=== PATIENT | female | born 1990 | race American Indian/Alaskan Native ===

== ENCOUNTER 2022-02-17 14:32 | Emergency (ER) | payer SELFPAY ==
[2022-02-17 16:03] VITALS: BP 121/74
--- NOTE | 2022-02-17 16:50 | XRay Report ---
LEFT ANKLE 3 VIEW(S) INDICATION / CLINICAL INFORMATION: pain and recent fall COMPARISON: None available. FINDINGS: BONES / JOINT(S): No acute fracture or subluxation. No significant arthritis. SOFT TISSUES: Mild soft tissue swelling about the ankle. ADDITIONAL FINDINGS: None. IMPRESSION: 1. Mild soft tissue swelling about the ankle. 2. No acute fracture. Signer Name: Perez Evans MD Signed: 02/17/2022 4:45 PM Workstation Name: [email or web address]
--- NOTE | 2022-02-17 17:26 | Emergency Department Report ---
ED Lower Extremity HPI - General Chief Complaint: Extremity Injury, Lower Stated Complaint: FOOT,ANKLE,LEG PAIN Time Seen by Provider: 02/17/22 17:24 Source: patient Mode of arrival: Ambulatory Limitations: No Limitations - History of Present Illness Initial Comments: 31-year-old black female with no past medical history sent to the emergency department for evaluation of left ankle and foot pain. She states that she twisted her ankle a couple days ago and has had increasing pain to the area since then. MD Complaint: ankle injury, foot injury -: Sudden, days(s) (2-3) Injury: Ankle: Left, Foot: Left Place: home Severity: moderate Severity scale (0 -10): 7 Worsens With: weight bearing Associated Symptoms: able to partially bear weight. denies: snap/pop sensation, swelling - Related Data Previous Rx's Medication Instructions Recorded Last Taken Type Azithromycin [Zithromax Z-DIANE] 0 mg PO DAILY #1 pack 06/11/19 Unknown Rx Naproxen [Naprosyn] 500 mg PO BID #14 tab 02/17/22 Unknown Rx Allergies Allergy/AdvReac Type Severity Reaction Status Date / Time No Known Allergies Allergy Verified 02/17/22 16:04 ED Review of Systems ROS: Stated complaint: FOOT,ANKLE,LEG PAIN Other details as noted in HPI Comment: All other systems reviewed and negative Constitutional: denies: chills, fever Respiratory: denies: shortness of breath Cardiovascular: denies: chest pain, palpitations Gastrointestinal: denies: abdominal pain, nausea, vomiting Musculoskeletal: denies: back pain Neurological: denies: headache, weakness ED Past Medical Hx - Surgical History Additional Surgical History: back surgery as a child - Social History Smoking Status: Current Every Day Smoker (1 pack day) Substance Use Type: None - Medications Home Medications: Home Medications Medication Instructions Recorded Confirmed Last Taken Type Azithromycin [Zithromax Z-DIANE] 0 mg PO DAILY #1 pack 06/11/19 Unknown Rx Naproxen [Naprosyn] 500 mg PO BID #14 tab 02/17/22 Unknown Rx ED Physical Exam - General Limitations: No Limitations General appearance: alert, in no apparent distress - Head Head exam: Present: atraumatic, normocephalic - Eye Eye exam: Present: normal appearance. Absent: conjunctival injection - Neck Neck exam: Present: normal inspection - Respiratory Respiratory exam: Absent: respiratory distress - Cardiovascular Cardiovascular Exam: Present: regular rate - GI/Abdominal GI/Abdominal exam: Absent: distended - Expanded Lower Extremity Exam Left Ankle exam: Present: tenderness, swelling. Absent: full ROM, abrasion, laceration, crepidus, dislocation, erythema Foot/Toe exam: Present: tenderness, swelling. Absent: full ROM, abrasion, laceration, ecchymosis, deformity, dislocation, erythema Neuro vascular tendon exam: Present: no vascular compromise. Absent: pulse deficit, abnormal cap refill, extremity cold to touch, pallor Gait: Positive: observed and limited by pain - Back Exam Back exam: Present: normal inspection - Neurological Exam Neurological exam: Present: alert, oriented X3 - Psychiatric Psychiatric exam: Present: normal affect, normal mood - Skin Skin exam: Present: warm, dry, intact, normal color ED Course Vital Signs 02/17/22 16:00 Temperature 98.2 F Pulse Rate 86 Respiratory 16 Rate Blood Pressure 121/74 [Right] O2 Sat by Pulse 98 Oximetry ED Lower Extremity MDM - Medical Decision Making 31-year-old black female with no past medical history sent to the emergency department for evaluation of left ankle and foot pain. She states that she twisted her ankle a couple days ago and has had increasing pain to the area since then. Left ankle x-ray without any acute abnormalities noted. Patient will be discharged home with 7-day course of naproxen and advised to follow-up with orthopedics for further evaluation and management if no improvement or worsening symptoms. She is advised to return to the emergency department as needed. She verbalizes understanding of and agreement with plan of care. Critical care attestation.: If time is entered above; I have spent that time in minutes in the direct care of this critically ill patient, excluding procedure time. ED Disposition Clinical Impression: Left foot pain Left ankle pain Qualifiers: Chronicity: acute Qualified Code(s): M25.572 - Pain in left ankle and joints of left foot Disposition: HOME / SELF CARE / HOMELESS Is pt being admited?: No Does the pt Need Aspirin: No Condition: Stable Instructions: How to Use Cold Therapy, [id number], Musculoskeletal Pain, Erica nt Pain, [id number] Additional Instructions: Take medications as prescribed. Follow-up with primary care provider or orthopedics if no improvement or worsening symptoms. Return to the emergency department as needed. Prescriptions: Naproxen [Naprosyn] 500 mg PO BID #14 tab Referrals: ROSA ELENA JAMESON MD [Primary Care Provider] - 3-5 Days DAMON DAN MD [Staff Physician] - 3-5 Days Forms: Work/School Release Form(ED) Time of Disposition: 17:26
== END 2022-02-17 17:40 | disposition home or self-care (01) ==
LOC: ED 14:32
DX: M79.672 Pain in left foot (principal); M25.572 Pain in left ankle and joints of left foot; F17.200 Nicotine dependence, unspecified, uncomplicated
CPT/HCPCS: 99283